=== PATIENT | female | born 1945 | race Caucasian/White ===

== ENCOUNTER → 2016-10-23 | Outpatient (CLI) | payer BC ==
[~2016-10-23] MED LIST: ASTNS; CALCTAB5 PO; CMDUNK PO; MULT-513 PO; VAGIFEM; [UNRECOGNIZED DRUG - CODE] PO
== END | disposition home or self-care (01) ==
LOC: C.MAMM 09:41
PROVIDERS: ATTEND Family Medicine
DX: M85.851 Other specified disorders of bone density and structure, right thigh (principal); Z85.828 Personal history of other malignant neoplasm of skin

== ENCOUNTER 2023-01-02 05:04 | Observation (INO) ==
--- NOTE | 2022-12-06 12:04 | PAT Medication Instructions ---
Medication Instructions Date of Service December 06, 2022 Home Medications ascorbic acid (vitamin C) 500 mg tablet (Vitamin C) 500 mg PO QAM ashwagandha root extract 500 mg capsule 500 mg PO QAM azelastine 137 mcg (0.1 %) nasal spray aerosol 1 spray intranasal BID PRN allergies buspirone 15 mg tablet 15 mg PO BID calcium carbonate 600 mg-vitamin D3 5 mcg (200 unit) tablet 1 tab PO QAM cholecalciferol (vitamin D3) 50 mcg (2,000 unit) capsule (Vitamin D3) 50 mcg PO QAM gabapentin 300 mg capsule 300 mg PO BID azkmvfzfeca-vqe-flrqcdehd-vitC capsule (Glucosamine Complex-MSM capsule) 1 cap PO QAM lisinopril 10 mg-hydrochlorothiazide 12.5 mg tablet 1 tab PO QAM cjcqbkue-cdf-uvafhq 5 mg-zeaxanth 1 mg-bilberry 7.5 mg-herbal capsule (Macular Health Formula) 2 cap PO BID multivitamin 1 tab PO QAM rosuvastatin 10 mg tablet 5 mg PO QAM salmon oil 1,000 mg-omega-3 fatty acids 210 mg capsule 1 cap PO QAM STOP taking 2 weeks before surgery ashwagandha root extract 500 mg capsule 500 mg PO QAM uiiqvwcisvb-gux-dzxtbqiwc-vitC capsule (Glucosamine Complex-MSM capsule) 1 cap PO QAM tfnbpjuk-wru-vauhks 5 mg-zeaxanth 1 mg-bilberry 7.5 mg-herbal capsule (Macular Health Formula) 2 cap PO BID salmon oil 1,000 mg-omega-3 fatty acids 210 mg capsule 1 cap PO QAM DO NOT take the morning of surgery ascorbic acid (vitamin C) 500 mg tablet (Vitamin C) 500 mg PO QAM calcium carbonate 600 mg-vitamin D3 5 mcg (200 unit) tablet 1 tab PO QAM cholecalciferol (vitamin D3) 50 mcg (2,000 unit) capsule (Vitamin D3) 50 mcg PO QAM lisinopril 10 mg-hydrochlorothiazide 12.5 mg tablet 1 tab PO QAM multivitamin 1 tab PO QAM Take morning of surgery With a small sip of water, OTHERWISE NOTHING TO EAT OR DRINK AFTER MIDNIGHT: azelastine 137 mcg (0.1 %) nasal spray aerosol 1 spray intranasal BID PRN allergies (if needed) buspirone 15 mg tablet 15 mg PO BID gabapentin 300 mg capsule 300 mg PO BID rosuvastatin 10 mg tablet 5 mg PO QAM Take evening before surgery azelastine 137 mcg (0.1 %) nasal spray aerosol 1 spray intranasal BID PRN allergies (if needed) buspirone 15 mg tablet 15 mg PO BID gabapentin 300 mg capsule 300 mg PO BID Other Notes If you have any questions please call us at [phone] or [phone] or [phone] or [phone]
--- NOTE | 2022-12-15 10:47 | Anesthesiology Consultation ---
Date of Service December 15, 2022 Assessment & Plan (1) Encounter for pre-operative examination: - Outpatient joint assessment: Patient is currently scheduled for inpatient pathway. If re-evaluated pending system levels during current pandemic/surgeon requests outpatient pathway, patient is not recommended candidate for outpatient joint program from anesthesia standpoint. Chart Review Chart Review: Acceptable Risk for Surgery and Patient seen in Pre Admission Testing Teaching & Discussion Pre-Anesthesia Teaching/Discussion Notes: Instructed NPO after midnight before surgery, except medications with 15 cc of water. Medication instructions provided according to the PAT guidelines. History Surgery Operation Date: 01/02/23 07:15 Proposed Procedures p Left Total Knee Arthroplasty - Karthikeyan Salazar MD Height/Weight Height: 5 ft 6.5 in Weight: 63.7 kg Allergies Allergy/AdvReac Type Severity Reaction Status Date / Time Sulfa (Sulfonamide Allergy Intermediate HIVES Verified 12/06/22 10:20 Antibiotics) Medications Home Medications Medication Instructions Recorded Confirmed Last Taken ascorbic acid (vitamin C) 500 mg 500 mg PO QAM 12/06/22 12/06/22 Unknown tablet (Vitamin C) ashwagandha root extract 500 mg 500 mg PO QAM 12/06/22 12/06/22 Unknown capsule azelastine 137 mcg (0.1 %) nasal 1 spray intranasal BID PRN 12/06/22 12/06/22 Unknown spray aerosol allergies buspirone 15 mg tablet 15 mg PO BID 12/06/22 12/06/22 Unknown calcium carbonate 600 mg-vitamin 1 tab PO QAM 12/06/22 12/06/22 Unknown D3 5 mcg (200 unit) tablet cholecalciferol (vitamin D3) 50 50 mcg PO QAM 12/06/22 12/06/22 Unknown mcg (2,000 unit) capsule (Vitamin D3) gabapentin 300 mg capsule 300 mg PO BID 12/06/22 12/06/22 Unknown viaqkenrppo-mpm-duuqqxxwp-vitC 1 cap PO QAM 12/06/22 12/06/22 Unknown capsule (Glucosamine Complex-MSM capsule) lisinopril 10 1 tab PO QAM 12/06/22 12/06/22 Unknown mg-hydrochlorothiazide 12.5 mg tablet ameeunbm-xsu-lhwtcv 5 mg-zeaxanth 2 cap PO BID 12/06/22 12/06/22 Unknown 1 mg-bilberry 7.5 mg-herbal capsule (Macular Health Formula) multivitamin 1 tab PO QAM 12/06/22 12/06/22 Unknown rosuvastatin 10 mg tablet 5 mg PO QAM 12/06/22 12/06/22 Unknown salmon oil 1,000 mg-omega-3 fatty 1 cap PO QAM 12/06/22 12/06/22 Unknown acids 210 mg capsule Past Medical History Medical History (Updated 12/15/22 @ 15:40 by Kadie Hurtado PA-C) Anxiety Chronic neck pain follows with Dr Lopez, denies limited ROM Hyperlipidemia Hypertension controlled, stable per pt Patient denies h/o stroke, seizures, heart attack, heart failure, DM, blood clots or blood transfusions. Exercise / Class Metabolic Activity II 4-5 Yardwork/Stairs/Walk up hill (denies chest discomfort or shortness of breath with 1 FOS) Past Family History Family History Other No family history of adverse response to anesthesia Past Surgical History Surgical History History of bunionectomy left History of colonoscopy History of open reduction and internal fixation (ORIF) procedure right wrist Past Anesthesia History No Hx of Anesthesia Complications and No Family Hx of Anesthesia Complications History of PONV No Hx of PONV and No Hx of Motion Sickness Social History Smoking Status: Never smoker Do You Dip or Chew Tobacco: No Hx Alcohol Use: Yes Alcohol type: wine alcohol intake frequency: a few times a week Hx Substance Use: No substance use type: does not use Review of Systems Patient denies chest pain, shortness of breath, dyspnea on exertion, snoring, witnessed apneas, reflux, fever, chills, cough, wheezing, or palpitations. Physical Exam Vital Signs Vitals BP 126/80 P 72 TEMP 97.6 SP02 100% on RA RESP 17 Physical Full cervical extension range of motion without pain TMD 3.5 finger breadths Mallampati Score 2 Dentition: several caps/crowns, denies chipped or loose teeth, caps/crowns, implants or bridges Lungs: normal respiratory effort. Good air movement, clear throughout to auscultation, no adventitious breath sounds Cardiac: regular rate and rhythm, no murmurs noted Carotid arteries: negative bruit bilat Lab Results Anesthesia Preop Results Results Anesthesia Widget: WBC 6.47 K/ul (4.8-10.8) 12/15/22 Hgb 14.0 g/dl (12.0-16.0) 12/15/22 Hct 41.9 % (37.0-47.0) 12/15/22 Plt 315 K/uL (130-400) 12/15/22 Na 135 mmol/L (136-145) L 12/15/22 K 3.8 mmol/L (3.5-5.1) 12/15/22 Cl 99 mmol/L (98-107) 12/15/22 CO2 28 mmol/L (21-32) 12/15/22 BUN 12 mg/dl (6-23) 12/15/22 Creat 0.78 mg/dl (0.6-1.2) 12/15/22 Glucose Level 91 mg/dl (70-99(Fasting)) 12/15/22 PT 10.6 Seconds (9.0-12.0) 12/15/22 PTT 26.4 Seconds (21.0-31.0) 12/15/22 INR 1.0 (0.9-1.1) 12/15/22 Urine Color Yellow 12/15/22 Urine Appearance Clear (Clear) 12/15/22 Urine pH 7.5 (4.5-7.5) 12/15/22 Urine Specific [place] 1.007 (1.000-1.030) 12/15/22 Urine Protein Negative (Negative) 12/15/22 Urine Glucose (UA) Negative (Negative) 12/15/22 Urine Ketones Negative (Negative) 12/15/22 Urine Blood Negative (Negative) 12/15/22 Urine Nitrite Negative (Negative) 12/15/22 Urine Bilirubin Negative (Negative) 12/15/22 Urine Urobilinogen Negative (Negative) 12/15/22 Urine Leukocyte Esterase Trace (Negative) H 12/15/22 Urine WBC (Auto) 1-5 /hpf (0-5) 12/15/22 Urine RBC (Auto) 0-4 /hpf (0-4) 12/15/22 Urine Hyaline Casts (Auto) 0 /lpf (0-5) 12/15/22 Urine Epithelial Cells (Auto) 10-20 /lpf (0-5) H 12/15/22 Urine Bacteria (Auto) Negative (Negative) 12/15/22 Blood Type A Positive 12/15/22 Antibody Screen NEGATIVE 12/15/22 Testing Electrocardiogram Date: 12/15/22 NSR, rate 67 bpm Chest X-Ray Date: 12/15/22 No acute cardiopulmonary findings. No change in appearance of the chest. COVID-19 Risk Screen Screening Information COVID-19 Screen Date: 12/15/22 Exposure 21 Days Family/Household +COVID Last 21 Days: No Exposure 10 Days Any COVID Exposure Last 10 Days: No Symptoms Last 10 Days Experienced COVID Sx Last 10 Days: No + COVID 0-90 Days COVID + in Last 0-90 Days: No
[2023-01-02] MEDS ORDERED: TRANEXAMIC ACID 1,000 MG **IV Pre-op IV SCH (06:00)
[2023-01-02] MEDS ORDERED: LR 60ML/HR IV SCH (06:00)
[2023-01-02] MEDS ORDERED: ceFAZolin 2000MG 2,000 MG/15 ML SYR IV SCH (06:00)
[2023-01-02] MEDS ORDERED: LR 500ML BOLUS, THEN 15ML/HR IV SCH (06:00)
[2023-01-02] MEDS ORDERED: ROPIVACAINE 0.5% HCL/PF 150 MG, BUPIVACAINE 0.75% MPF 20 ML, EPINEPHrine 0.15 MG, Ketor... INFIL SCH (06:00)
[2023-01-02] MEDS ORDERED: fentaNYL citrate PF 100 MCG/2 ML VIAL ONE (06:26)
[2023-01-02] MEDS ORDERED: MIDAZOLAM HCL 1 MG/ML 2ML VIAL ONE (06:26)
[2023-01-02] MEDS ORDERED: ONDANSETRON INJ 2 MG/ML 2 ML VIAL ONE (06:26)
[2023-01-02] MEDS ORDERED: PROPOFOL IV EMULSION 10 MG/ML 20 ML VIAL IV ONE ×2 (06:26→08:49)
[2023-01-02] MEDS ORDERED: LIDOCAINE 2% 2 ML VIAL/AMP(20MG/ML) INFIL ONE ×2 (06:26→06:27)
[2023-01-02] MEDS ORDERED: DEXAMETHASONE SOD INJ 4 MG/ML VIAL ONE ×3 (06:26)
--- NOTE | 2023-01-02 06:30 | History & Physical Bridge Note ---
Date of Service January 02, 2023 History & Physical Bridge Note I have examined the patient, reviewed the History & Physical and in the interval since the performance of the History & Physical I have noted the following changes of clinical significance:consent obtained/site verified. no changes noted
[2023-01-02] MEDS ORDERED: ROPIVACAINE 0.5% 5 MG/ML 30 ML VIAL ONE (06:51)
[2023-01-02] MEDS ORDERED: ATROPINE SULFATE 0.1 MG/ML 10ML SYR IV PRN (07:14)
[2023-01-02] MEDS ORDERED: ONDANSETRON INJ 2 MG/ML 2 ML VIAL IV PRN ×2 (07:14→10:10)
[2023-01-02] MEDS ORDERED: KETOROLAC 30 MG/ML VIAL IV PRN (07:14)
[2023-01-02] MEDS ORDERED: ePHEDrine sulfate 50 MG/ML AMP IV PRN (07:14)
[2023-01-02] MEDS ORDERED: fentaNYL citrate PF 100 MCG/2 ML VIAL IV PRN (07:14)
[2023-01-02] MEDS ORDERED: ORTHO JOINT ANESTHETIC ONE (07:18)
[2023-01-02] MEDS ORDERED: GLYCOPYRROLATE 0.2 MG/ML VIAL ONE (08:49)
--- NOTE | 2023-01-02 08:49 | Post Operative Brief Note ---
Immediate Post Op Note v1 Date of Surgery January 02, 2023 Pre & Post Diagnosis Operation Date: 01/02/23 07:15 <No data on this case meets the specified criteria> I identified the patient and participated in the time-out.: Yes Procedure Operation Date: 01/02/23 07:15 <No data on this case meets the specified criteria> Surgeon Karthikeyan Salazar MD Dehydrogenation Operator Head Arthur/Ayan Estimated Blood Loss 50 Findings Consistent with Post-Op Diagnosis Severe medial compartment DJD Fluids See anesthesia report Complications None
--- NOTE | 2023-01-02 08:54 | Operative Report ---
Post Operative Report Pre & Post Diagnosis Osteoarthritis left knee with varus deformity preop diagnosis Postop diagnosis osteoarthritis left knee with varus deformity Operation Date: 01/02/23 07:15 <No data on this case meets the specified criteria> I identified the patient and participated in the time-out.: Yes Procedure Cemented left total knee replacement Operation Date: 01/02/23 07:15 <No data on this case meets the specified criteria> Surgeon Karthikeyan Salazar MD Clerk Entry Level Arthur/Ayan Estimated Blood Loss 50 Findings Consistent with Post-Op Diagnosis Severe medial compartment disease with a slight flexion contracture Fluids See anesthesia record Specimens Bone pathology Drains None Complications None Indications Medically. Female with intractable medial knee pain is failed conservative management including steroid injections and viscosupplementation injections has been followed for years. X-rays reveal advanced medial compartment with joint space narrowing and collapse with varus alignment and slight flexion contracture. Description of Procedure Patient Probiata bite site verify consent provide antibiotics and is beginning left lower extremity was prepped and draped in routine fashion. Tourniquet plated 275 mmHg for exsanguination limited members and fracture total of roughly 53 minutes. Midline exposure utilized parapatellar neurotomy performed. Synovectomy completed. Medial release performed. Anterior menisci remnants excised. Appropriate box cleanout performed. Distal femur and anterior cruciate resected. Distal femur then resected 12 mm proximal tibia 4 mm the extension gap was excellent. Femur was then sized between a 4 and a 2-1/2 it was measured 3 and cut 3 with no notching. Flexion gap was then checked and was excellent. Was slightly tight laterally little bit of release but other than that it was excellent. Box cut was then made and the size 3 femur fit well. The tibia was then subluxated and broached and reamed to a size 2-1/2. There was no overhang. The size 3 spacer was then seated 10 L thick and he had excellent range of motion no loss of extension no flexion instability. The patella tracked well. Patella was then measured it was roughly 24 mm thick it was resected to roughly 13 mm and a 38 button fit well. This tracked well. The Ortho mix was injected about the knee all trial elements were then removed wound irrigated with Betadine and Pulsavac. Cement was then prepared and the implant cemented in position tibia femur and patella and order 12 minutes of tourniquet deflated minor bleeding points electrocautery 40 minutes knee was flexed minimal cement removal was required. Wound was irrigated with Betadine and Pulsavac and the trial liner removed irrigated 1 final time and the permanent liner seated the knee reduced and closed at 45 to 50 degrees of flexion with #2 Vicryl 2-0 Vicryl and standstill clips. Appropriate dressing was applied patient transferred recovery in satisfactory addition he tolerated procedure well. EBL was roughly 50 cc crystalloid per anesthesia bone pathology pending DVT prophylaxis per protocol. Summary of implants size 3 posterior subsidence femur size 2-1/2 tibial tray size 3 posterior cruciate substituting poly ten millimeters thick. Patellar button was 38 mm 2 bags of [place] G cement. EBL 50 cc crystalloid per anesthesia bone pathology pending DVT prophylaxis per protocol. I attest to the content of the Intraoperative Record and any orders documented therein. Any exceptions are noted below.
--- NOTE | 2023-01-02 09:02 | Orthopedic Progress Note ---
Date of Service January 02, 2023 Assessment & Plan (1) Status post left knee replacement: Plan: Continue care pathway Case management to set up for home services discharge tomorrow if she does well overnight. Subjective Doing well has no major issues postop. Denies chest pain shortness of breath fever chills nausea vomiting or headache. Wound dressing clean dry and intact. Physical Exam Musculoskeletal: Neurovascular check limited by spinal. X-ray pending. Results & Data Vital Signs (Past 12 Hours) Vital Signs Temp Pulse Resp BP Pulse Ox O2 Del Method 01/02/23 05:35 36.7 C 64 18 182/82 H 99 Room Air
--- NOTE | 2023-01-02 09:03 | Operative Report ---
Post Operative Report Pre & Post Diagnosis Operation Date: 01/02/23 07:15 Pre-Op Diagnosis: Left Knee Osteoarthritis Post-Op Diagnosis: Left Knee Osteoarthritis I identified the patient and participated in the time-out.: Yes Procedure Operation Date: 01/02/23 07:15 Actual Procedures p Left Total Knee Arthroplasty(Left) - Karthikeyan Salazar MD Surgeon BEATRIZ Salazar MD Manager Implementation Arthur/Ayan [place] Estimated Blood Loss 50 Findings Consistent with Post-Op Diagnosis see operative report Specimens see operative report Drains none Complications none Disposition Accompanied Patient To Recovery: Yes Indications This 77 year old female presented to the office with complaints of persisting left knee pain. She had tried conservative care measures without improvement. She elected to proceed with surgical intervention after being educated about potential risks and outcomes. Preoperative imaging was obtained. She has a history of previous right total knee arthroplasty and has done well with it. She elects to proceed with the same on the left. Description of Procedure The patient was administered a spinal anesthetic and then taken to the operating room where she was given sedation. She was prepped and draped in the usual sterile fashion. Please see Dr. Salazar's operative report for specifics of the procedure. I was present for the entire case from initial patient positioning through final wound closure. Assistance was provided in tissue retraction, hemostasis, trial implant placement, final implant placement, and final wound closure. The patient was taken to the recovery room in satisfactory condition. I attest to the content of the Intraoperative Record and any orders documented therein. Any exceptions are noted below.
--- NOTE | 2023-01-02 09:06 | Discharge Summary ---
Date of Service January 02, 2023 Admission HPI Per Admitting Provider Admitted for elective left total knee replacement. Admission Exam Per Admitting Provider Varus alignment flexion deformity. Neurovascular check normal. Principal Diagnosis Osteoarthritis of left knee. Discharge Exam Musculoskeletal See admission physical. Discharge Data Allergies Allergy/AdvReac Type Severity Reaction Status Date / Time Sulfa (Sulfonamide Allergy Intermediate HIVES Verified 01/02/23 05:30 Antibiotics) Vaccinations None Consultations None Procedures Performed Operation Date: 01/02/23 07:15 Actual Procedures p Left Total Knee Arthroplasty(Left) - Karthikeyan Salazar MD Ordered Studies 01/02/23 05:00 US - OR guided needle placemen Routine Hospital Course (1) Status post left knee replacement: Continue care pathway Case management to set up for home services discharge tomorrow if she does well overnight. Total Time Total Time Spent Total Time Spent (In Minutes): 15 Discharge Plan Discharge Items Patient Disposition: Home - Self-Care Reason For Visit: Left Knee Osteoarthritis Discharge Diagnosis: Left knee osteoarthritis status post left cemented total knee replacement Condition on Discharge: Good Activity: Per Instructions section Lifting: Wait until after follow-up appointment Bathing: Keep incision dry Bathing Comment: Keep wound clean and dry Sexual Activity: Wait until after follow-up appointment Excercise/Sports: Wait until after follow-up appointment Driving/Machine Use Comment: Can drive when off narcotics Weightbearing: Full weightbearing Weightbearing Comment: Full weightbearing left range of motion 0 to 90 degrees TAMEKA Non-emergency contact: Surgeon Call non-emergency contact if: your temperature is above 101.5, your wound has increased redness, your wound has increased drainage and your wound pain has increased Follow-Up/Referrals: Martell Ervin [Primary Care Provider] - Diet: Resume previous diet Addtl Attending Provider Instructions: DIET: * Resume previous diet. MEDICATIONS: * Please take your prescriptions as instructed at your pre-op appointment and/or see medication discharge instructions listed above. * If concerns develop, call your physician's office at . SPECIAL CARE INSTRUCTIONS: * Ice/Elevate as instructed. * Keep dressing clean, dry, intact. * Your surgical extremity may be discolored due to prepping agents used on the skin. A bluish-green tint is a normal variant and should not cause alarm. Call your doctor at [phone] if: * Temperature above 101 degrees * Pain not relieved by pain medicine ordered * There is increased drainage or redness from any incision * You have any unanswered questions, problems or concerns. FOLLOW UP VISIT: * If not already scheduled, please call the office at to schedule a follow-up appointment. Pending Studies at Discharge: Yes Studies:: Bone pathology Stand-Alone Forms: My [facility] [employer] Prescriptions: No Action multivitamin Tablet 1 tab PO QAM calcium carbonate-vitamin D3 [Calcium + D] 600 mg-5 mcg (200 unit) Tablet 1 tab PO QAM azelastine 137 mcg (0.1 %) Aerosol,[place] 1 spray INTRANASAL BID PRN (Reason: allergies) Rx Instructions: administer into each nostril gabapentin 300 mg Capsule 300 mg PO BID lisinopril-hydrochlorothiazide 10-12.5 mg Tablet 1 tab PO QAM buspirone 15 mg Tablet 15 mg PO BID rosuvastatin 10 mg Tablet 5 mg PO QAM Macular Health Formula 5-1-7.5 mg Capsule 2 cap PO BID cholecalciferol (vitamin D3) [Vitamin D3] 50 mcg (2,000 unit) Capsule 50 mcg PO QAM ascorbic acid (vitamin C) [Vitamin C] 500 mg Tablet 500 mg PO QAM Glucosamine Complex-MSM Capsule 1 cap PO QAM salmon oil-omega-3 fatty acids 1,000-210 mg Capsule 1 cap PO QAM ashwagandha root extract 500 mg Capsule 500 mg PO QAM Discharge Orders: Discharge Order (Routine); Ordered 01/02/23 Ordered By: Karthikeyan Salazar Admission Data Attending Provider: Karthikeyan Salazar Primary Care Provider: Martell Ervin
--- NOTE | 2023-01-02 09:49 | XRay Report ---
TWO VIEWS LEFT KNEE CLINICAL HISTORY: Postoperative examination. FINDINGS: AP and crosstable lateral portable views of the left knee are obtained. A left knee arthrop lasty is in near anatomic alignment. There has been undersurface remodeling of the patella. No acute fracture is seen. There are expected postoperative changes around the knee including skin clips, sof t tissue edema, and subcutaneous gas. IMPRESSION: Expected postoperative changes status post left knee arthroplasty. No acute fracture is s een. ACT 112: Negative or not required by law. Electronically signed by: Nathan Paredes M.D. 01/02/2023 9:47 AM
--- NOTE | 2023-01-02 09:56 | Anesthesiology Progress Note ---
Date of Service January 02, 2023 Anesthesia Post Procedure Vital Signs Vital Signs: Temp Pulse Pulse Resp BP Pulse Ox O2 Del Method 01/02/23 09:45 48 L 12 159/71 H 100 Room Air 01/02/23 09:35 36.4 C L 57 L 16 170/95 H 100 Room Air 01/02/23 09:25 60 14 165/78 H 97 Room Air 01/02/23 09:15 60 12 164/77 H 99 Oxymask 01/02/23 09:05 59 L 12 151/77 H 100 Oxymask 01/02/23 08:58 36.3 C L 65 12 152/87 H 100 Oxymask 01/02/23 05:35 36.7 C 64 18 182/82 H 99 Room Air O2 Flow Rate 01/02/23 09:45 01/02/23 09:35 01/02/23 09:25 01/02/23 09:15 8 01/02/23 09:05 8 01/02/23 08:58 8 01/02/23 05:35 Pain Intensity Left Knee: Pain Intensity: 0 Transfer of Care Handoff Completed per policy Notes Mental Status: alert / awake / arousable Patient Amnestic to Procedure: Yes Nausea / Vomiting: adequately controlled Pain: adequately controlled Airway Patency, RR, SpO2: stable & adequate BP & HR: stable & adequate Hydration State: stable & adequate Neuraxial Anesthesia: was administered and sensory block is resolving Anesthetic Complications: no major complications apparent
[2023-01-02] MEDS ORDERED: MAGNESIUM HYDROXIDE SUSP 30 ML UDC PO PRN (10:10)
[2023-01-02] MEDS ORDERED: HYDROmorphone INJ 0.5 MG/0.5 ML SYR IV PRN (10:10)
[2023-01-02] MEDS ORDERED: METOCLOPRAMIDE HCL INJ 5 MG/ML 2 ML VIAL IV PRN (10:10)
[2023-01-02] MEDS ORDERED: diphenhydrAMINE 50 MG/ML VIAL IV PRN (10:10)
[2023-01-02] MEDS ORDERED: NALOXONE HCL 0.4 MG/1 ML VIAL/CARP IV PRN (10:10)
[2023-01-02] MEDS ORDERED: bisacodyL 10 MG SUPP PR PRN (10:10)
[2023-01-02] MEDS ORDERED: SODIUM CHLORIDE 0.9% 1000ML 1,000 ML IV SCH (10:10)
[2023-01-02] MEDS ORDERED: ALUMINUM/MAGNESIUM SUSP 30 ML UDC PO PRN (10:10)
[2023-01-02] MEDS ORDERED: oxyCODONE HCL IR 5 MG TAB (IMMEDIATE RELEASE) PO PRN (10:10)
[2023-01-02] MEDS ORDERED: VANCOMYCIN CONSULT ACTIVE PRN (10:10)
[2023-01-02] MEDS ORDERED: AZELASTINE HCL 0.1% NASAL 200 SPRAYS/27,400 MCG BTL NAE PRN (10:10)
[2023-01-02] MEDS: KETOROLAC TROMETHAMINE 15 MG/ML VIAL IV SCH ×3 (10:41→21:32)
[2023-01-02] MEDS ORDERED: ORTHO WARFARIN NOMOGRAM SCH (14:00)
[2023-01-02] MEDS: ACETAMINOPHEN 500 MG TAB PO SCH ×2 (14:06→21:18)
[2023-01-02] MEDS: ceFAZolin 2000MG 2,000 MG/15 ML SYR IV SCH ×2 (15:31→22:31)
[2023-01-02] MEDS ORDERED: WARFARIN SOD 5 MG TAB PO SCH (16:00)
[2023-01-02] MEDS: FERROUS GLUCONATE 324 MG TAB PO SCH (16:50)
[2023-01-02] MEDS: ASCORBIC ACID 500 MG TAB PO SCH (16:50)
[2023-01-02] MEDS ORDERED: TRANEXAMIC ACID / 0.7% NACL 1,000 MG/100 ML BAG IV ONE (16:53)
[2023-01-02] MEDS ORDERED: VANCOMYCIN HCL 1,000 MG in SODIUM CHLORIDE 0.9% 250 ML IV SCH (19:15)
[2023-01-02] MEDS: busPIRone 15 MG TAB PO SCH (20:35)
[2023-01-02] MEDS: GABAPENTIN 300 MG CAP PO SCH (20:35)
[2023-01-02] MEDS: DOCUSATE SODIUM 100 MG CAP PO SCH (20:35)
[2023-01-02] MEDS ORDERED: SENNA 8.6 MG TAB PO SCH (21:00)
[2023-01-02] MEDS ORDERED: traZODone HCL 50 MG TAB PO ONE (21:57)
[2023-01-03] MEDS: KETOROLAC TROMETHAMINE 15 MG/ML VIAL IV SCH (04:12)
[2023-01-03] MEDS: ACETAMINOPHEN 500 MG TAB PO SCH (06:06)
--- NOTE | 2023-01-03 06:23 | Orthopedic Progress Note ---
Date of Service January 03, 2023 Assessment & Plan (1) Status post left knee replacement: Plan: Continue care pathway Case management to set up for home services discharge tomorrow if she does well overnight. Admission and Anticipated Discharge Date Admission Date: January 02, 2023 Orthopedic Progress Note No issues overnight. Is mobile. Denies chest pain shortness breath fever chills nausea vomiting headache. Vital signs are stable she is afebrile. Neurovascular check from sciatic nerve is normal. Wound dressing clean dry and intact. Will change prior to discharge. Doing well discharged home today Home services anticoagulant dose before discharge. Dressing change before discharge. Follow-up in 2 weeks.
[2023-01-03 06:53] LABS: Hematocrit (blood only) 30.6 % (37.0-47.0); Hemoglobin 10.5 g/dl (12.0-16.0); Mean Corpuscular Hemoglobin 31.4 pg (25.0-34.0); Mean Corpuscular Hgb Conc 34.3 g/dL (32.0-36.0); Mean Corpuscular Volume 91.6 fL (80.0-100.0); Mean Platelet Volume 10.6 fL (9.4-12.4); Platelet Count 282 K/uL (130-400); RDW Standard Deviation 43.8 fL (36.4-46.3); Red Blood Count 3.34 M/uL (4.20-5.40); White Blood Count 12.76 K/ul (4.8-10.8)
[2023-01-03 07:05] LABS: BUN Creatinine Ratio 15.1 (10-20); Calcium 8.8 mg/dl (8.6-10.3); Creatinine Clr Calc Pharmacy 49.1 ml/min; Est GFR (African American) 69.2 ml/min; Est GFR (Non-African American) 59.7 ml/min; Potassium 3.8 mmol/L (3.5-5.1)
[2023-01-03] MEDS: busPIRone 15 MG TAB PO SCH (08:01)
[2023-01-03] MEDS: GABAPENTIN 300 MG CAP PO SCH (08:01)
[2023-01-03] MEDS: ASCORBIC ACID 500 MG TAB PO SCH (08:02)
[2023-01-03] MEDS: dexAMETHasone 10 MG in SYRINGE 0 ML IV SCH ×2 (08:02→08:09)
[2023-01-03] MEDS: FERROUS GLUCONATE 324 MG TAB PO SCH (08:02)
[2023-01-03] MEDS: DOCUSATE SODIUM 100 MG CAP PO SCH (08:02)
[2023-01-03] MEDS ORDERED: LISINOPRIL/HCTZ 10/12.5MG TAB PO SCH (09:00)
[2023-01-03] MEDS ORDERED: ROSUVASTATIN CALCIUM 5 MG TAB PO SCH (09:00)
[2023-01-03] MEDS ORDERED: MULTIVITAMIN TAB PO SCH (09:00)
== END 2023-01-03 10:49 | disposition home or self-care (01) ==
LOC: ASU 05:04 → 3E 05:04